=== PATIENT | female | born 2000 | race African-American/Black ===

== ENCOUNTER 2021-06-09 18:31 | Emergency (ER) | payer OTHER ==
[~2021-06-09] VITALS: Ht 160 cm; Wt 178.4 kg
[2021-06-09] MEDS ORDERED: ACETAMINOPHEN 325 MG TABLET PO ONE (20:00)
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
[2021-06-09 20:55] VITALS: BP 156/90
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
== END 2021-06-09 20:57 | disposition home or self-care (01) ==
LOC: ER 18:31
DX: M25.511 Pain in right shoulder (principal); M54.59 Other low back pain; R07.89 Other chest pain; V89.2XXA Person injured in unspecified motor-vehicle accident, traffic, initial encounter; Y93.89 Activity, other specified; Y92.89 Other specified places as the place of occurrence of the external cause; Y99.8 Other external cause status
CPT/HCPCS: 71045; 72131; 73030; 99284

== ENCOUNTER 2021-08-24 20:49 | Emergency (ER) | payer BC, OTHER ==
[~2021-08-24] VITALS: Ht 160 cm; Wt 178.4 kg
[2021-08-24 21:01] VITALS: BP 157/64
--- NOTE | 2021-08-24 21:15 | PHYS DOC ---
Past History Past Medical History: Other Additional Past Medical Histor: Borderrline DM Past Surgical History: No Surgical History Additional Smoking Information: "I VAPE" Alcohol Use: Occasionally Adult General Chief Complaint Chief Complaint: URINARY FREQUENCY HPI HPI Patient is a 20-year-old female presenting to the emergency department for evaluation of dysuria. She denies any abdominal pain fevers chills nausea vomiting diarrhea constipation vaginal bleeding or vaginal discharge. She says she has not had a menstrual cycle since June and is concerned that she may be . She is in no acute distress with normal vital signs. Review of Systems Review of Systems Constitutional: Denies fever or chills [] Respiratory: Denies cough or shortness of breath [] Cardiovascular: No additional information not addressed in HPI [] GI: Denies abdominal pain, nausea, vomiting, bloody stools or diarrhea [] : + dysuria. No hematuria [] Musculoskeletal: Denies back pain or joint pain [] Neurologic: Denies headache, focal weakness or sensory changes [] All other systems were reviewed and found to be within normal limits, except as documented in this note. Allergies Allergies Allergies Uncoded Allergies Type Severity Reaction Last Updated Verified SHELLFISH Allergy Unknown 06/09/21 Physical Exam Physical Exam Constitutional: Well developed, well nourished, no acute distress, non-toxic appearance. [] Cardiovascular:Heart rate regular rhythm, no murmur [] Lungs & Thorax: Bilateral breath sounds clear to auscultation [] Abdomen: Bowel sounds normal, soft, no tenderness, no masses, no pulsatile masses. [] Skin: Warm, dry, no erythema, no rash. [] Back: No tenderness, no CVA tenderness. [] Neurologic: Alert and oriented X 3, normal motor function, normal sensory function, no focal deficits noted. [] Current Patient Data Vital Signs Vital Signs Date Time Temp Pulse Resp B/P (MAP) Pulse Ox O2 Delivery O2 Flow Rate FiO2 08/24/21 21:01 98.6 67 18 157/64 (95) 99 Room Air EKG EKG [] Radiology/Procedures Radiology/Procedures [] Heart Score C/O Chest Pain: No Risk Factors: Risk Factors: DM, Current or recent (<one month) smoker, HTN, HLP, family history of CAD, obesity. Risk Scores: Risk Factors: DM, Current or recent (<one month) smoker, HTN, HLP, family history of CAD, obesity. Course & Med Decision Making Course & Med Decision Making I will check urinalysis and reassess. Patient is which she already knew as she says she had a positive test at home. She has no vaginal bleeding or abdominal pain. She does have symptoms of urinary tract infection and although her urinalysis is unremarkable I will start her on an antibiotic given her classic symptoms. Patient was told to follow with a primary care provider within 2 days for recheck and come back to emergency department sooner with worsening pain bleeding fevers or other general concerns. Patient aware and agreeable with plan and verbalized understanding of the above instructions. Dragon Disclaimer Dragon Disclaimer This electronic medical record was generated, in whole or in part, using a voice recognition dictation system. Departure Departure: Impression: Primary Impression: UTI (urinary tract infection) Additional Impression: Positive test Disposition: HOME / SELF CARE / HOMELESS Condition: STABLE Referrals: PCP,NO (PCP) Patient Instructions: Urinary Tract Infection Scripts Nitrofurantoin Monohyd/M-Cryst (MACROBID [id number] MG CAPSULE) 100 Mg Capsule 1 CAP PO BID for 7 Days, #14 CAP 0 Refills Prov: ABDIAS KATE DO 08/24/21 Problem Qualifiers ABDIAS KATE DO August 24, 2021 21:15
[2021-08-24 22:07] LABS: BACTERIA,URINE 0 /HPF (0-FEW); CLARITY,URINE CLOUDY; COLOR,URINE YELLOW; GLUCOSE,URINE NEG (NEG); NITRITE,URINE NEG (NEG); RBC,URINE 0 /HPF (0-2); SQUAMOUS EPITHELIAL CELL,UR MANY /LPF; WBC,URINE OCC /HPF (0-4)
[2021-08-24] MEDS ORDERED: NITR100C62 PO (22:36)
== END 2021-08-24 22:42 | disposition home or self-care (01) ==
LOC: ER 20:49
DX: N39.0 Urinary tract infection, site not specified (principal); Z32.01 Encounter for pregnancy test, result positive
CPT/HCPCS: 81001; 81025; 87077; 87086; 87186; 99283